=== PATIENT | male | born 2005 | race Caucasian/White ===

== ENCOUNTER 2024-11-04 01:50 | Outpatient (CLI) | payer OTHER, SELFPAY ==
--- NOTE | 2024-11-04 | DI.MRI_ITS ---
Exam(s) MR UPPER JOINT LT WO EXAM: MR UPPER JOINT LT WO CLINICAL HISTORY: Weakness and pain of lt shoulder, R29.898, acute on chronic,. TECHNIQUE: Multiplanar multisequence MRI was performed. COMPARISON: No exams were available for comparison FINDINGS: BONES: There is no fracture or contusion pattern. Subchondral cyst is seen in the greater tuberosity. JOINTS: The acromioclavicular joint is normal. The glenohumeral joint is normal. No joint effusion is present. TENDONS: Supraspinatus: No evidence of tendinopathy or tear. Infraspinatus: No evidence of tendinopathy or tear. Subscapularis: No evidence of tendinopathy or tear. Teres Minor: No evidence of tendinopathy or tear. Biceps and [place]: Unremarkable. MUSCLES: Unremarkable. No evidence of muscular fatty atrophy. GLENOID LABRUM: Unremarkable on this noncontrast examination. SOFT TISSUES: Unremarkable. LIGAMENTS: Unremarkable. OTHER: There is distension of the subdeltoid bursa suspicious for bursitis. IMPRESSION: 1. Findings suspicious for subdeltoid bursitis. 2. No evidence of a rotator cuff tear or glenoid labral tear on this noncontrast examination. 3. Nonspecific subchondral cyst is seen in the greater tuberosity. DATA REPOSITORY:
== END 2024-11-04 02:10 ==
PROVIDERS: PCP Pediatrics; Visit Provider Family Medicine
DX: R29.898 Other symptoms and signs involving the musculoskeletal system (principal)
CPT/HCPCS: 73221

== ENCOUNTER 2025-02-14 09:42 | Emergency (ER) | payer OTHER, SELFPAY ==
[2025-02-14 09:43] VITALS: BP 160/80; PULSE 72; RESP 15; TEMP 36.9; O2SAT 97
--- NOTE | 2025-02-14 09:49 | DI.RAD_ITS ---
Exam(s) XR FOOT RT COMPLETE EXAM: XR FOOT RT COMPLETE CLINICAL HISTORY: right 5th metatarsal pain and swelling. TECHNIQUE: 2D digital imaging was performed of the right foot. Three images were obtained. AP, oblique and lateral views were obtained. COMPARISON: No exams were available for comparison FINDINGS: BONES: There is an acute fracture of the distal diaphysis of the 4th metatarsal. There is almost 1 shaft's with lateral displacement of the distal fracture. No bony destructive lesion is seen. JOINTS: No dislocation present. SOFT TISSUE: There is soft tissue swelling of the lateral foot. IMPRESSION: 1. Acute displaced fracture through the distal diaphysis of the 4th metatarsal. 2. The preliminary [facility] report was reviewed. DATA REPOSITORY: RADIATION DOSE DELIVERED:
--- NOTE | 2025-02-14 09:51 | ED.GENADUL_ITS ---
Discharge Plan Disposition Patient Disposition: Home Discharge Details Clinical Impression: Displaced fracture of fourth metatarsal bone, right foot, initial encounter for closed fracture, Injury of foot, right Primary Care Provider: Dg Muro ED Provider: Daniel Wilder Home Meds and New Rx's Prescriptions: New acetaminophen [Tylenol] 325 mg tablet 975 mg PO ONCE PRNQty: 60 0RF naproxen 500 mg tablet,delayed release (DR/EC) 500 mg PO BID PRNQty: 20 0RF Discharge Instructions Instructions: Foot Sprain ED Additional Instructions: Please follow-up with your primary care provider regarding your visit to the emergency department today. Be sure to discuss results of all test performed here today to include radiology, and laboratory testing as well as results for any pending cultures. Should your symptoms worsen, or if you develop new concerning symptoms, please return immediately emergency department for further evaluation. Stand Alone Forms: Work Release Referrals: Connor Chen MD [ [facility] STAFF PHYSICIAN, Orthopaedic Surgical] - 1 day Kassy Villasenor DPM [[facility] STAFF PHYSICIAN, Podiatry] - 1 day HPI General Date/Time Provider Initiated Documentation: 02/14/25 09:49 . HPI Narrative: MDM/Narrative: Initial Assessment: 20-year-old male with right foot pain after everting the foot while lifting another person at 2200 hours. Reports popping sensation, pain, and swelling in right lateral midfoot. Took naproxen 1000 mg with some improvement. Denies numbness, weakness, or other injuries. Differential Diagnosis: Fracture, dislocation, Lisfranc injury. Standing x-rays to rule out. ED Course: Standing x-rays of right foot obtained. Final Assessment: Right fourth metatarsal fracture Clinical Impression: Right fourth metatarsal right Disposition: Home, referral to both podiatry and orthopedics as per patient's preference. Patient Education: Crutches provided. This document was created with assistance from [employer]. The patient consented to its use. HPI: The patient, a 20-year-old male, presents with right foot pain following an eversion injury sustained while lifting another individual at 2200 hours. He reports experiencing a popping sensation accompanied by pain and swelling localized to the right lateral midfoot. The patient administered naproxen 1000 mg, which provided some symptomatic relief. He denies any associated numbness, weakness, or additional injuries. ROS: Negative besides as mentioned above Exam: Vital signs: Reviewed. General Appearance: Alert and oriented. No acute distress. HEENT: NCAT, EOMI, not icteric. External ears normal. No rhinorrhea. Moist mucous membranes. Neck: Supple, full range of motion, no observable masses, No meningeal sign. Respiratory: No Respiratory distress. No tachypnea. Cardiovascular: RRR, no edema. Gastrointestinal: Soft, nondistended, No rebound tenderness. Back: No midline tenderness to palpation or palpable step-offs of the C/T/L sp ine. Musculoskeletal: No tenderness in fibular head or malleoli. No ankle swelling or ecchymosis. Tenderness and swelling in fifth metatarsal head without ecchymosis. DP pulses 2+ bilaterally. Skin: Warm and dry, no rash. Neurological: Normal Gait, Grossly intact. Psychiatric: Appropriate for situation. Radiology: X-ray right foot 3 view complete standing films: Moderately displaced and angulated 4th metatarsal fracture, as read by me. Related Data Home Medications ?Medication ?Instructions ?Recorded ?Confirmed acetaminophen 325 mg tablet 975 mg (3 x 325 mg) PO ONC E PRN 02/14/25 (Tylenol) #60 tabs naproxen 500 mg tablet,delayed 500 mg PO BID PRN #20 t abs 02/14/25 release Previous Rx's ?Medication ?Instructions ?Recorded acetaminophen 325 mg tablet 975 mg (3 x 325 mg) PO ONC E PRN 02/14/25 (Tylenol) #60 tabs naproxen 500 mg tablet,delayed 500 mg PO BID PRN #20 t abs 02/14/25 release Allergies Allergy/AdvReac Type Severity Reaction Status Date / Time cheryl tree Allergy Severe Hives Uncoded 08/22/16 20:19 General Stated Complaint: Orthopedic JADIEL: 3 Course Vital Signs Vital signs: Vital Signs Temperature 36.9 C 02/14/25 09:43 Pulse 72 02/14/25 09:43 Respiratory Rate 15 02/14/25 09:43 Blood Pressure 160/80 H 02/14/25 09:43 Pulse Oximetry 97 02/14/25 09:43 Temperature 36.9 C 02/14/25 09:43 Temperature Source Oral 02/14/25 09:43 Pulse 72 02/14/25 09:43 Respiratory Rate 15 02/14/25 09:43 Blood Pressure 160/80 H 02/14/25 09:43 Blood Pressure Position Sitting 02/14/25 09:43 Pulse Oximetry 97 02/14/25 09:43 Oxygen Delivery Method Room Air 02/14/25 09:43 Oxygen Flow Rate 0 02/14/25 09:43 Pain Level 2 02/14/25 09:43 PFSH All Active Problems (Updated 02/14/25 @ 10:25 by Daniel Wilder MD) Displaced fracture of fourth metatarsal bone, right foot, initial encounter for closed fracture (Acute) Injury of foot, right (Acute) Social History Smoking/Tobacco Use Status: Never Smoking risk assessment performed?: Yes Alcohol Intake: current Alcohol Intake frequency: holidays/special occasions only Drug use: Socially Substance use type: marijuana Do you feel safe in your relationship?: Yes
[2025-02-14] MEDS: Acetaminophen 500 MG TAB 1000 MG PO (09:54)
[2025-02-14 10:47] VITALS: BP 148/67; PULSE 56; RESP 16; TEMP 36.9
--- NOTE | 2025-02-14 11:16 | DI.[facility]_ITS ---
PROCEDURE INFORMATION: Exam: XR Right Foot Exam date and time: 02/14/2025 10:07 AM Age: 20 years old Clinical indication: Other: Right 5th metatarsal pain and swelling TECHNIQUE: Imaging protocol: Radiologic exam of the right foot. Views: 3 or more views. COMPARISON: No relevant prior studies available. FINDINGS: Bones/joints: Acute, displaced, transverse fracture of the distal 4th metatarsal diaphysis, with approximately 50% lateral shaft with displacement of the distal fragment. No dislocation. Soft tissues: Mild dorsal and lateral foot soft tissue swelling. IMPRESSION: 1. Acute, displaced, transverse fracture of the distal 4th metatarsal diaphysis, with approximately 50% lateral shaft with displacement of the distal fragment. 2. Mild dorsal and lateral foot soft tissue swelling. Dictated and Authenticated by: Reese Shi MD. Orderin Tina Sanchez MD
== END 2025-02-14 10:53 | disposition home or self-care (01) ==
PROVIDERS: Emergency Provider General Practice; PCP Pediatrics
DX: S92.341A Displaced fracture of fourth metatarsal bone, right foot, initial encounter for closed fracture (principal); X50.1XXA Overexertion from prolonged static or awkward postures, initial encounter
CPT/HCPCS: 99283 ×2; 73630

== ENCOUNTER 2025-02-17 11:55 | Day surgery (SDC) | payer OTHER, SELFPAY ==
[2025-02-17] VITALS (22 sets, daily range): BP systolic 103–127; BP diastolic 41–82; PULSE 40–59; RESP 10–20; TEMP 36.3–36.9; O2SAT 96–99; BMI 26.2
[2025-02-17] MEDS: Lactated Ringers 1,000 ML 80 ML IV (13:00)
--- NOTE | 2025-02-17 13:04 | PDOC.DSDIS_ITS ---
Date of service: 02/17/25 Discharge Plan Disposition Patient Disposition: Home Condition: Good Discharge Details Reason For Visit: ORIF R Hay Attending Provider: Connor Chen Primary Care Provider: Blayne Philip Home Meds and New Rx's Prescriptions: New oxycodone 5 mg tablet 5 mg PO Q8H MDD 15mg PRN (Reason: pain) Qty: 10 0RF Continued acetaminophen [Tylenol] 325 mg tablet 975 mg PO ONCE PRNQty: 60 0RF naproxen 500 mg tablet,delayed release (DR/EC) 500 mg PO BID PRNQty: 20 0RF Discharge Instructions Additional Instructions: Ankle Hardware Removal Discharge Instructions Activity: You may weight bear as tolerated using the crutches. You should keep the leg elevated as much as possible. You may wiggle your toes and move your hip and knee. You should wear the fracture walking boot when you are up and mobilizing, but may remove it when not and move your ankle as tolerated. Dressings: You should keep the initial dressing on for at least 3 days. After 3 days, you may remove it and get it wet in the shower. You should keep it covered with a light gauze dressing or wrap until follow-up. Medications: - You should take Tylenol and Ibuprofen around the clock for baseline pain. - You have been prescribed a stronger narcotic, oxycodone, for breakthrough pain. Follow-up: 2 weeks Referrals: Connor Chen MD [ [facility] STAFF PHYSICIAN, Orthopaedic Surgical] Equipment/Supplies: Partial Weight Bearing Crutches Activity:: Activity as Tolerated Remove Dressings/Wound Care:: 72 hours Shower/Bathe:: 72 hours Diet:: As Tolerated Discharge Orders Discharge Orders: Discharge Order (Routine); Ordered 02/17/25 Ordered By: Ovidio Doyle DS: Diagnosis Discharge Diagnosis (1) Displaced fracture of fourth metatarsal bone, right foot, initial encounter for closed fracture: Status: Acute
--- NOTE | 2025-02-17 13:12 | ANES.PREOP_ITS ---
General Info Date of Service Date Performed: 02/17/25 Height: 5 ft 10 in Weight: 83 kg Body Mass Index (BMI): 26.2 Surgical Procedure: Operation Date: 02/17/25 15:10 Proposed Procedure Side Surgeon p Metatarsal ORIF 4th Toe Right Connor Chen MD Meds Allergies and Home Medications Allergies Allergy/AdvReac Type Severity Reaction Status Date / Time cheryl tree Allergy Severe Hives Uncoded 02/17/25 12:32 Home Medication ?Medication ?Instructions ?Recorded acetaminophen 325 mg tablet 975 mg (3 x 325 mg) PO ONC E PRN 02/14/25 (Tylenol) #60 tabs naproxen 500 mg tablet,delayed 500 mg PO BID PRN #20 t abs 02/14/25 release oxycodone 5 mg tablet 5 mg PO Q8H PRN pain #10 tab s 02/17/25 Current Visit Medications: Current Medications Generic Name Dose Route Start Last Admin Trade Name Freq PRN Reason Stop Dose Admin Acetaminophen 650 mg 02/17/25 13:02 Acetaminophen 325 Mg Tab PO 03/19/25 13:01 Q4H PRN PRN Ringer's Solution 1,000 mls @ 80 mls/hr 02/17/25 06:00 02/17/25 13:00 IV 02/17/25 23:59 80 mls/hr INFUSION PEDRO Administration Cefazolin Sodium/Dextrose 2 gm in 50 mls @ 100 mls/hr 02/17/25 12:00 Ancef Duplex IVPB 03/19/25 11:59 PREOP PEDRO IV Miscellaneous Supplies 1 each 02/17/25 06:00 Iv Access IV 02/17/25 23:59 DIRECTED PEDRO Oxycodone HCl 5 mg 02/17/25 13:02 Oxycodone 5 Mg Tab PO 03/19/25 13:01 Q3H PRN PRN Pain Sodium Chloride 0 ml 02/17/25 06:00 Normal Saline Flush 10 Ml Syr IV 02/17/25 23:59 PRN PRN Sodium Chloride 0 ml 02/17/25 06:00 Normal Saline 10 Ml Vial IJ 02/17/25 23:59 DIRECTED PRN Sterile Water 0 ml 02/17/25 06:00 Water,Injection,Sterile 10 Ml Vial IJ 02/17/25 23:59 DIRECTED PRN PFSH Active Problems Active Problems: Problem Status Onset Code Displaced fracture of fourth metatarsal bone, right foot, initial encounter for closed fracture Acute 02/13/25 S92.341A Injury of foot, right Acute S99.921A Surgical History Surgical History Hx of wisdom tooth extraction Tobacco Smoking/Tobacco Use Status: Never Passive smoking exposure: No Alcohol Alcohol Intake: current Alcohol intake frequency: holidays/special occasions only Substance Use Substance use: Socially Substance use type: marijuana Details: vapes: t, Marijuana: t-1 Vital Signs and Lab Results Vital Signs Most Recent Vital Signs in EMR: Most Recent Vital Signs Temp Pulse Resp BP Pulse Ox 36.3 C L 59 L 16 127/64 97 02/17/25 12:37 02/17/25 12:37 02/17/25 12:37 02/17/25 12:37 02/17/25 12:37 Anesthesia Assessment and Plan Anesthesia History Personal History: No History of Anesthesia Complications Family History: No Family History of Anesthesia Complications Exercise Tolerance Exercise Tolerance: Metabolic Equivalents>4 Pertinent Negatives Pertinent Negatives: No Symptoms of GERD, No Major Cardiovascular Symptoms or Complaints and No Major Pulmonary Symptoms or Complaints Cardiac & Pulmonary Exam Cardiac Exam: Normal S1/S2 Heart Sounds Pulmonary Exam: Clear Bilateral Breath Sounds Implantable Cardiac Device Does patient have a Pacemaker or an ICD?: No Airway Exam Known Difficult Airway: No Mallampati Class: 1 Mouth Opening: Normal (> 3cm) Thyromental Distance: Greater than 3 cm Neck Range of Motion: Full ROM Neck Circumference: Normal Teeth Condition: Normal Dentition ASA Classification ASA Score: ASA 2 Emergency Case?: No NPO Status NPO Status: NPO Clears >2 hours, Solids >8 hours Anesthesia Plan Resuscitation Status: Full Code Anesthesia Technique: General Anesthesia Airway Planned: Natural Airway Monitors Used: Standard Monitors
--- NOTE | 2025-02-17 13:15 | DI.RAD_ITS ---
Exam(s) XR TOE RT FOURTH EXAM: XR TOE RT FOURTH CLINICAL HISTORY: fractured metatarsal 4th toe. TECHNIQUE: 2D and realtime digital imaging was performed. COMPARISON: CR,XR XR FOOT RT COMPLETE from 02/14/2025 FINDINGS: Please see procedure note for details. Fluoro time: 10seconds RADIATION DOSE DELIVERED: brenna Caba=0.6 mGy
[2025-02-17] MEDS: ceFAZolin 2 GM/50 ML BAG IVPB (13:42)
[2025-02-17] MEDS: Bupivacaine 0.25% Pres-Free W/EPI 30 ML VIAL (14:04)
--- NOTE | 2025-02-17 16:08 | W.ANESPOSTOP ---
Postoperative Evaluation Date, Time and Location Date Performed: 02/17/25 Time Performed: 16:08 Patient Location: Day Surgery Unit Vital Signs Most Recent Imported Vital Signs: Most Recent Vital Signs Temp Pulse Resp BP Pulse Ox 36.3 C L 53 L 15 120/82 99 02/17/25 15:44 02/17/25 15:44 02/17/25 15:44 02/17/25 15:44 02/17/25 15:44 Pain Score Most Recent Pain Score: Most Recent Pain Score Pain Level 2 02/17/25 15:44 Assessment Mental Status: Awake (Alert & Oriented to Patient Baseline) Airway and Respiratory Function: Patent airway with normal (patient baseline) respiratory exam Cardiovascular Function: Hemodynamically Stable Hydration Status: Adequately Hydrated Nausea & Vomiting: No Nausea or Vomiting Pain: Pain is tolerable per patient Peripheral Nerve Block: Patient did not receive a nerve block
--- NOTE | 2025-02-17 18:16 | W.PM.OP ---
Operative Note Operative Note PRE-OP DIAGNOSIS: Right fourth metatarsal fracture POST-OP DIAGNOSIS: same PROCEDURE: Open Reduction and Internal Fixation of right fourth metatarsal SURGEON: Connor Chen SENIOR DATASTAGE DEVELOPER: Dimitri Doyle ANESTHESIA TYPE: General LMA/ETT Refer to Anesthesia Record ESTIMATED BLOOD LOSS: 20 PATHOLOGY: none sent TOURNIQUET TIME: 0 COMPLICATIONS: None Patient was transported to: PACU Patient's condition: stable Indications: Rhys is a active 20-year-old male who presented to the Emergency Department after an injury which resulted in a fourth metatarsal fracture. X-rays confirmed the diagnosis of a displaced and angulated fourth metatarsal fracture. I reviewed the possible treatment options and given the fracture, I recommended operative fixation. I discussed the technical details of the surgery. I reviewed the risks such as bleeding, infection, pain, stiffness, malunion, nonunion, hardware prominence, hardware faiilure, damage to nerves and vessels, blood clot. Despite these risks, he agreed to proceed. Findings: There was a grossly unstable fracture of the fourth metatarsal with a distal segment wildly mobile. It was reduced and secured with a single 2.0 millimeter screw. Procedure Description: Rhys was greeted in the preoperative area. Consent was reviewed and signed. He was taken to the operating room and then transferred to the operating room table. General anesthesia was administered. All bony prominences were well padded. Arms were placed out to the side, padded, and secured. A single dose of TXA, 1 gram, was then administered IV. Prophylactic antibiotics, Cefazolin 2 grams, was given for prophylactic antibiotics. A timeout was performed for safe surgery. The right leg was prepped with Chloraprep. The leg was draped with an extremity drape. The proposed surgical site was then anesthetized with 0.25% bupivacaine with epinephrine. Fluoroscopy was utilized to dimitri the fracture location on the skin. Then, an approximately 4 cm incision was made longitudinally along the lateral border of the fourth metatarsal, roughly centered over the fracture. This was taken down sharply to the skin. Blunt dissection was carried down protecting crossing nerve structures. Transverse veins were cauterized. Deep muscular layer was encountered along the lateral border of the fourth metatarsal and bluntly elevated with a govea elevator exposing the fracture site. The distal segment was grossly mobile. It was actually quite challenging to try to get reduction as any manipulation of soft tissue would move the distal segment. By putting longitudinal traction on the toe I was able to improve the length and secure a better location to reduce the fracture and then secured this with a clamp. Once the clamp is in place direct visualization was utilized to ensure that the fracture was reduced and this was confirmed with fluoroscopy. I then placed a single 2.0 millimeter screw across the fracture site in lag fashion. This had excellent fixation of the fracture. Upon final tightening there is seem to be a slight crack developing in the apex of the fracture edge. However, it was not full-thickness and did not separate in order to loosen the screw. This was tested and the bone was manipulated and showed no signs of loosening and no sign of gapping and no sign of instability. Fluoroscopy was utilized once again to confirm appropriate positioning of the screw. At this point I decided to secure the fracture only with a single screw rather than further dissection and a plate given its location. The wound was then thoroughly irrigated. The deep tissues were closed with a 3-0 Vicryl and the skin was closed with a running 4-0 Monocryl. This was reinforced with skin glue. A Mepilex dressing was then applied to the wound itself. This was followed by an Shelton wrap for compression. He is placed back into his short fracture walker boot. At the end of the case, all counts were correct. Rhys tolerated the procedure well without known complication and was taken to the PACU for recovery. He will be touchdown weightbearing with the fracture walker boot utilizing crutches. Date of Procedure: 02/17/25
== END 2025-02-17 16:45 | disposition home or self-care (01) ==
PROVIDERS: PCP Family Medicine; Visit Provider Student in an Organized Health Care Education/Training Program
PROC: (CPT 28485; principal; 2025-02-17 15:00)
DX: S92.341A Displaced fracture of fourth metatarsal bone, right foot, initial encounter for closed fracture (principal); X50.1XXA Overexertion from prolonged static or awkward postures, initial encounter
CPT/HCPCS: 28485; 76000; 73660; J0131; J0690; J1100; J1885; J2003; J2250; J2405; J2704

== ENCOUNTER 2025-03-01 15:21 | Outpatient (CLI) | payer OTHER, SELFPAY ==
--- NOTE | 2025-03-01 15:18 | DI.RAD_ITS ---
Exam(s) XR FOOT RT COMPLETE EXAM: XR FOOT RT COMPLETE CLINICAL HISTORY: eval right 4th MC frx. TECHNIQUE: 2D digital imaging was performed. COMPARISON: CR,XR XR FOOT RT COMPLETE from 02/14/2025 FINDINGS: 3 views There has been interval placement of a screw across the previously displaced fracture site just proximal to the neck of the 4th metatarsal. There has been significant healing with no residual fracture line or displacement at this level. No other fractures evident. No evidence of osteomyelitis. Some soft tissue swelling of the dorsal aspect of the foot noted. IMPRESSION: Satisfactory healing at the 4th metatarsal fracture site. DATA REPOSITORY: RADIATION DOSE DELIVERED:
== END 2025-03-01 15:22 | disposition home or self-care (01) ==
LOC: DIORS 15:21
PROVIDERS: PCP Family Medicine; Referring Provider Family Medicine; Visit Provider Student in an Organized Health Care Education/Training Program
DX: S92.341A Displaced fracture of fourth metatarsal bone, right foot, initial encounter for closed fracture (principal)
CPT/HCPCS: 73630

== ENCOUNTER 2025-03-29 15:15 | Outpatient (CLI) | payer OTHER, SELFPAY ==
--- NOTE | 2025-03-29 15:30 | DI.RAD_ITS ---
Exam(s) XR FOOT RT COMPLETE EXAM: XR FOOT RT COMPLETE CLINICAL HISTORY: F/U R FT FX. TECHNIQUE: 2D digital imaging was performed. COMPARISON: CR,XR XR FOOT RT COMPLETE from 02/14/2025 CR XR FOOT RT COMPLETE from 03/01/2025 FINDINGS: 3 views There is further callus formation at the level the healing fracture in the distal half of the 4th metatarsal. There is also a screw again noted at this level. On the present study there are adjacent healing fractures in the distal half the 2nd and 3rd metatarsals, not previously evident on 03/01/2025 but having similar location to the 4th metatarsal fracture. These do not displaced and exhibits significant callus formation. Fracture lines are still visible at these levels in the 2nd and 3rd metatarsals. Lisfranc joint appears unremarkable as do the other tarsometatarsal joints. IMPRESSION: Healing adjacent nondisplaced fractures in the distal half of the diaphyses of the 2nd, 3rd, and 4th metatarsals. The healing fracture sites in the 2nd and 3rd metatarsals were not evident on most recent radiographs of 03/01/2025. DATA REPOSITORY: RADIATION DOSE DELIVERED:
== END 2025-03-29 15:16 | disposition home or self-care (01) ==
LOC: DIORS 03-30 08:55
PROVIDERS: PCP Family Medicine; Visit Provider Student in an Organized Health Care Education/Training Program
DX: S92.341A Displaced fracture of fourth metatarsal bone, right foot, initial encounter for closed fracture (principal)
CPT/HCPCS: 73630